=== PATIENT | female | born 1995 | race Two or more races ===

== ENCOUNTER 2022-11-05 08:31 | Emergency (ER) | payer OTHER ==
[~2022-11-05] VITALS: Ht 160 cm; Wt 68.0 kg
[2022-11-05] MEDS ORDERED: SYNTHROID50 MCG PO (08:42)
== END 2022-11-05 12:58 | disposition home or self-care (01) ==
LOC: ER 08:31
DX: B34.9 Viral infection, unspecified (principal); J45.998 Other asthma; Z20.822 Contact with and (suspected) exposure to COVID-19